=== PATIENT | female | born 1985 | race Caucasian/White ===

== ENCOUNTER → 2017-05-13 | Outpatient (CLI) | payer BC ==
[~2017-05-13] MED LIST: AMOX50SU; EXPECTA PRENAT1 EACH PO; HYDACE5; IBUP800; IBUP800 PO; OXYACE5T PO; PROM25 PO; RXOXYACE PO
[2017-05-14 14:20] LABS: Source Cervix
[2017-05-15 12:29] LABS: HPV Genotype 16 Not Detected (NOTDET); HPV Genotype 18 Not Detected (NOTDET)
[2017-05-22 08:16] LABS: HPV High Risk Other Not Detected (NOTDET)
== END ==
LOC: LAB 14:59
PROVIDERS: Obstetrics & Gynecology
DX: Z34.81 Encounter for supervision of other normal pregnancy, first trimester (principal)
CPT/HCPCS: 87491; 87591; 87624; 87661; G0123

== ENCOUNTER 2017-07-16 09:36 | Emergency (ER) | payer BC ==
[~2017-07-16] VITALS: Ht 172.7 cm; Wt 158.5 kg
[~2017-07-16 09:36] MED LIST changes: -IBUP800
== END 2017-07-16 12:40 | disposition home or self-care (01) ==
LOC: ER 09:36
DX: O20.9 Hemorrhage in early pregnancy, unspecified (principal); Z79.899 Other long term (current) drug therapy; Z3A.19 19 weeks gestation of pregnancy
CPT/HCPCS: 76816; 99284

== ENCOUNTER → 2017-11-09 | Outpatient (CLI) | payer BC | END | disposition home or self-care (01) | LOC: LAB 16:41 → LAB SHORT 16:41 | DX: Z34.83 Encounter for supervision of other normal pregnancy, third trimester (principal); Z3A.35 35 weeks gestation of pregnancy | CPT/HCPCS: 87081; 87653 ==

== ENCOUNTER 2017-12-10 06:09 | Inpatient (IN) | payer BC ==
[~2017-12-10] VITALS: Ht 172.7 cm; Wt 166.0 kg
[2017-12-10 09:19] LABS: BASOPHILS ABSOLUTE AUTO 0.03 K/mm3 (0.00-0.23); BASOPHILS PERCENT AUTO 0 % (0-2); EOSINOPHILS ABSOLUTE AUTO 0.17 K/mm3 (0.00-0.68); EOSINOPHILS PERCENT AUTO 1 % (0-6); Hematocrit 35.3 % (33.0-51.0); Hemoglobin 11.3 g/dL (11.5-16.0); IMMATURE GRAN ABSOLUTE AUTO 0.05 K/mm3 (0.00-0.10); IMMATURE GRAN PERCENT AUTO 0 % (0-1); LYMPHOCYTES ABSOLUTE AUTO 2.43 K/mm3 (0.84-5.20); LYMPHOCYTES PERCENT AUTO 18 % (21-46); MONOCYTES ABSOLUTE AUTO 0.75 K/mm3 (0.16-1.47); MONOCYTES PERCENT AUTO 5 % (4-13); Mean Corpuscular HGB 24.4 pg (26.0-34.0); Mean Corpuscular Volume 76 fL (80-100); Mean Platelet Volume 9.2 fL (9.1-12.4); NEUTROPHILS ABSOLUTE AUTO 10.48 K/mm3 (1.96-9.15); NEUTROPHILS PERCENT AUTO 75 % (41-73); Platelet Count 356 K/mm3 (150-400); RDW Coefficient Variation 14.9 % (11.7-14.2); RDW Standard Deviation 40.5 fL (35.1-46.3); Red Blood Cell Count 4.64 M/mm3 (3.80-5.20); White Blood Cell Count 13.91 K/mm3 (4.00-11.30)
[2017-12-11 05:55] LABS: BASOPHILS ABSOLUTE AUTO 0.04 K/mm3 (0.00-0.23); BASOPHILS PERCENT AUTO 0 % (0-2); EOSINOPHILS ABSOLUTE AUTO 0.24 K/mm3 (0.00-0.68); EOSINOPHILS PERCENT AUTO 2 % (0-6); Hematocrit 31.7 % (33.0-51.0); Hemoglobin 10.1 g/dL (11.5-16.0); IMMATURE GRAN ABSOLUTE AUTO 0.07 K/mm3 (0.00-0.10); IMMATURE GRAN PERCENT AUTO 0 % (0-1); LYMPHOCYTES ABSOLUTE AUTO 3.52 K/mm3 (0.84-5.20); LYMPHOCYTES PERCENT AUTO 22 % (21-46); MONOCYTES ABSOLUTE AUTO 1.24 K/mm3 (0.16-1.47); MONOCYTES PERCENT AUTO 8 % (4-13); Mean Corpuscular HGB 24.3 pg (26.0-34.0); Mean Corpuscular HGB Conc 31.9 g/dL (31.5-36.5); Mean Corpuscular Volume 76 fL (80-100); Mean Platelet Volume 9.4 fL (9.1-12.4); NEUTROPHILS ABSOLUTE AUTO 11.06 K/mm3 (1.96-9.15); NEUTROPHILS PERCENT AUTO 68 % (41-73); Platelet Count 306 K/mm3 (150-400); RDW Coefficient Variation 14.6 % (11.7-14.2); RDW Standard Deviation 39.9 fL (35.1-46.3); Red Blood Cell Count 4.15 M/mm3 (3.80-5.20); White Blood Cell Count 16.17 K/mm3 (4.00-11.30)
[2017-12-11] MEDS ORDERED: IBUP800 (16:09)
== END 2017-12-11 17:25 | disposition home or self-care (01) | DRG 775 ==
LOC: BC 06:09
PROVIDERS: Obstetrics & Gynecology
PROC: 10E0XZZ Delivery of Products of Conception, External Approach (ICD-10-PCS; principal; 2017-12-10)
PROC: 3E033VJ Introduction of Other Hormone into Peripheral Vein, Percutaneous Approach (ICD-10-PCS; 2017-12-10)
PROC: 3E0R3BZ Introduction of Anesthetic Agent into Spinal Canal, Percutaneous Approach (ICD-10-PCS; 2017-12-10)
DX: O48.0 Post-term pregnancy (principal); Z68.43 Body mass index [BMI] 50.0-59.9, adult; Z3A.40 40 weeks gestation of pregnancy; Z37.0 Single live birth; O99.214 Obesity complicating childbirth; E66.01 Morbid (severe) obesity due to excess calories
CPT/HCPCS: 36415; 85025; J1885; J2210; J2405; J2590; J3010; J7120

== ENCOUNTER 2018-02-04 10:04 | Day surgery (SDC) | payer BC ==
[~2018-02-04] VITALS: Ht 172.7 cm; Wt 165.1 kg
[~2018-02-04 10:04] MED LIST changes: +IBUP800
== END 2018-02-04 17:00 | disposition home or self-care (01) ==
LOC: ORSCMMR 10:04
PROVIDERS: Obstetrics & Gynecology
PROC: 0UT74ZZ Resection of Bilateral Fallopian Tubes, Percutaneous Endoscopic Approach (ICD-10-PCS; principal; 2018-02-04 11:15)
DX: Z30.2 Encounter for sterilization (principal); E66.01 Morbid (severe) obesity due to excess calories; Z68.43 Body mass index [BMI] 50.0-59.9, adult
CPT/HCPCS: 88302; J0330; J1885; J2250; J2405; J2765; J3010; J7120

== ENCOUNTER 2022-02-05 06:13 | Inpatient (IN) | payer BC ==
[~2022-02-05] VITALS: Ht 172.7 cm; Wt 135.6 kg
[~2022-02-05 06:13] MED LIST changes: +Prednisone20 MG PO
--- NOTE | 2022-02-05 11:25 | NUR ---
bp running in 80's systolic. Dr canseco currently in OR. spoke with teresa ROGERS in day surgery who will speak with dr Canseco regarding patient bp. pt lying in bed with eyes closed, awakens to vewrbal stimuli. reports pain and nausea are adequately controlled.
--- NOTE | 2022-02-05 11:39 | NUR ---
1135 DR ECHEVARRIA HERE TO SEE PATIENT, ORDERS RECEIVED
--- NOTE | 2022-02-05 11:59 | NUR ---
FLUID BOLUS IN PLACE. PT SEEPY, OPENS EYES TO VERBAL STIMULI. REPORTS SL NAUSEA WHEN AWAKENED. RETURNED TO SLEEP WHILE RN AT BEDSIDE. BIOX 95-100% ON ROOM AIR. SARA PAD WITH QUARTER SIZED AREA BLOODY VAGINAL DRAINAGE
--- NOTE | 2022-02-05 12:52 | NUR ---
1238 bp 68/43 hr 83 biox 87% though getting poor signal. vidya pad with 2" area bloody drainage, no clots. pt placed in reverse trendelenburg bp 80/[address] tierney and new orders received
[2022-02-05 13:18] LABS: Hematocrit 25.6 % (33.0-51.0); Mean Corpuscular HGB Conc 31.3 g/dL (31.5-36.5); Mean Corpuscular Volume 87 fL (80-100); Mean Platelet Volume 9.9 fL (9.1-12.4); Platelet Count 435 K/mm3 (150-400); Red Blood Cell Count 2.96 M/mm3 (3.80-5.20); White Blood Cell Count 27.34 K/mm3 (4.00-11.30)
[2022-02-05 13:46] LABS: BASOPHILS PERCENT MAN 0 % (0-2); EOSINOPHILS PERCENT MAN 0 % (0-6); LYMPHOCYTES ABSOLUTE MAN 3.28 K/mm3 (0.84-5.20); LYMPHOCYTES PERCENT MAN 12 % (21-46); MONOCYTES PERCENT MAN 0 % (4-13); NEUTROPHILS ABSOLUTE MAN 24.05 K/mm3 (1.96-9.15); SEG NEUTROPHILS PERCENT MAN 88 % (41-73); TOTAL CELLS COUNTED 100
--- NOTE | 2022-02-05 14:15 | NUR ---
After responding to a rapid call, I attend to pt's spouse, Rony, who is a bit overwhelmed. I provide a calming presence, positive distraction and therapeutic listening. I walk him to the ICU waiting rm and aid with communication with staff until pt is wheeled back to surgery. Rony responds well to interventions and shows signs of staying in as much peace as possible given the circumstances. I will continue to remain available.
--- NOTE | 2022-02-05 14:20 | NUR ---
1330 PT REP[ORTING "GAS PAINS" IN ABD, REQUESTING HOB BE ELEVATED. DISCUSSED WITH PT AND NEED AT THIS TI,E TO KEEP BED IN REVERSE TRENDELENBURG DUE TO HYPOTENSION.
--- NOTE | 2022-02-05 14:20 | NUR ---
ARRIVAL TO ICU PT ARRIVES TO ICU AT 1340 S/P VAGINAL HYSTER FOR HYPOTENSION. PALE, COOL. MUCUS MEMBRANES PALE. HYPOTENSIVE. DROWSY, WAKES TO VERBAL STIMULI. ATTEMPTED IV ACCESS. DR ECHEVARRIA AT BEDSIDE, PLAN TO RETURN TO OR. DR NAVARRETE AT BEDSIDE. ADDITIONAL 1L NS PLACED ON PRESSURE BAG, DOPAMINE STARTED VIA PIV. TO OR AT 1410.
--- NOTE | 2022-02-05 14:25 | NUR ---
1343 PT WITH SUDDENGASPING/SHALLOW RESPIRATIONS. PT DID NOT OPEN EYES TO VERBAL STIMULU. RAPID RESPONSE INITIATED.4" DIAMETER OF VAGINAL BLEEDING ON BED LINENS, NO VISIBLE CLOTS PT OPENED EYES AND VERBALIZES THAT STOMACH HURTS AFTER STERNAL RUB WAS DONE. DR ECHEVARRIA NOTIFIED OF PATIENT STATUS BY ROBBIE GHOTRA RN. PT TRANSFERRED TO ICU 8 ACCOMPANIED BY .
[2022-02-05 15:09] LABS: Hematocrit 25.3 % (33.0-51.0); Hemoglobin 8.3 g/dL (11.5-16.0)
--- NOTE | 2022-02-05 15:38 | NUR ---
02/05/22 1538 Marilee Byrd PT ENTERED OR WITH HIGUERA
[2022-02-05 15:51] LABS: PCO2 Arterial 51.3 mmHg (35-45); PO2 Arterial 373 mmHg (80-100); pH Blood Arterial 7.16 (7.35-7.45)
--- NOTE | 2022-02-05 16:51 | NUR ---
Met with spouse in ICU waiting room. Spouse displays evidence of understanding and engagement. Spouse will remain in waiting room until notified by ICU staff he can be with Pt. Notified ICU charge nurse of spouses location. Will remain available to the family.
[2022-02-05 17:52] LABS: PCO2 Arterial 46.5 mmHg (35-45); PO2 Arterial 157 mmHg (80-100); pH Blood Arterial 7.25 (7.35-7.45)
--- NOTE | 2022-02-05 18:00 | NUR ---
ARRIVAL TO ICU AT 1630. BEDSIDE REPORT FROM DR ECHEVARRIA, DR BEASLEY, AND OR STAFF. INTUBATED, 7.0 ETT, 23 AT TEETH, VENT SETTINGS AC/VC 16/400/5/50%. LUNGS CLEAR c EXP WHEEZE IN LLL. PROPOFOL GTT STARTED FOR SEDATION, 50 MCG/KG/MIN. MEDICATED c FENTANYL FOR PAIN PRN. ABD SOFT, OBESE. BT X 4. LAURA DRESSING TO LOWER ABD, SCANT BLOOD ON DRESSING. ART LINE TO LEFT RADIAL, FLUSHED AND ZERO'D. HTN NOTED. CORDIS LINE TO RIJ, NS AT 75 ML/HR INFUSING. HIGUERA PATENT, DRAINING CLEAR YELLOW URINE TO GRAVITY. OGT PLACED TO LIS. SO AT BEDSIDE. PER DR ECHEVARRIA, CONTACT HER FOR ANY EVENTS OVER NIGHT.
[2022-02-05 18:07] LABS: BASOPHILS ABSOLUTE AUTO 0.02 K/mm3 (0.00-0.23); BASOPHILS PERCENT AUTO 0 % (0-2); EOSINOPHILS PERCENT AUTO 0 % (0-6); Hematocrit 27.6 % (33.0-51.0); Hemoglobin 9.5 g/dL (11.5-16.0); IMMATURE GRAN ABSOLUTE AUTO 0.08 K/mm3 (0.00-0.10); IMMATURE GRAN PERCENT AUTO 1 % (0-1); LYMPHOCYTES ABSOLUTE AUTO 0.62 K/mm3 (0.84-5.20); LYMPHOCYTES PERCENT AUTO 4 % (21-46); MONOCYTES ABSOLUTE AUTO 0.42 K/mm3 (0.16-1.47); MONOCYTES PERCENT AUTO 2 % (4-13); Mean Corpuscular HGB 29.2 pg (26.0-34.0); Mean Corpuscular HGB Conc 34.4 g/dL (31.5-36.5); Mean Corpuscular Volume 85 fL (80-100); Mean Platelet Volume 9.4 fL (9.1-12.4); NEUTROPHILS PERCENT AUTO 93 % (41-73); Platelet Count 186 K/mm3 (150-400); RDW Standard Deviation 43.6 fL (35.1-46.3); Red Blood Cell Count 3.25 M/mm3 (3.80-5.20); White Blood Cell Count 17.34 K/mm3 (4.00-11.30)
[2022-02-05 18:26] LABS: Albumin, Blood 2.7 g/dL (3.4-5.0); Anion Gap 7 mmol/L (6-16); Blood Urea Nitrogen 14 mg/dL (8-24); Bun/Creatinine Ratio 23.7 (12.0-20.0); CO2, Blood 22 mmol/L (21-32); Calcium, Blood 7.8 mg/dL (8.5-10.1); Chloride, Blood 115 mmol/L (98-108); Creatinine, Blood 0.59 mg/dL (0.40-1.00); Glomerular Filtration Rate 119 (60-); Glucose, Blood 189 mg/dL (70-99); Phosphorus, Blood 2.9 mg/dL (2.5-4.9); Potassium, Blood 4.4 mmol/L (3.5-5.5); Sodium, Blood 144 mmol/L (136-145)
[2022-02-05 20:43] LABS: Source, Urine Foley catheter
[2022-02-05 20:56] LABS: Appearance, Urine Clear (Clear); Bilirubin, Urine Neg (Neg); Blood, Urine 2+ (Neg); Color, Urine Yellow (P-Yellow); Glucose Qualitative, Urine Neg (Neg); Ketones, Urine Neg (Neg); Leukocyte Esterase, Urine Neg (Neg); Nitrite, Urine Neg (Neg); Protein, Urine Neg (Neg); Specific Gravity, Urine 1.015 (1.003-1.022); Urobilinogen, Urine NORM (Normal)
--- NOTE | 2022-02-05 20:58 | NUR ---
ASSUMPTION OF CARE THIS RN ASSUMED CARE WITH MAN ROGERS AT 1900. REPORT TAKEN AT BEDSIDE WITH ELENA ROGERS. AC/VC /5 50% FIO2. PATIENT TOLERATING VENT WELL AT THIS TIME. AFEBRILE. SR/ST WITH HR 90-100S ON MONITOR. BP STABLE, MAP >65. BILATERAL SOFT WRIST RESTRAINTS IN PLACE. PROPOFOL TITRATED TO 45MCG/KG/MIN. PATIENT WITH SCANT AMOUNT OF BLEEDING IN SARA AREA. LAURA DRESSING INTACT, SCANT AMOUNT OF SANGUINOUS DRAINAGE NOTED ON DRESSING. HIGUERA CATHETER PATENT AND DRAINING TO GRAVITY. SEE SHIFT ASSESSMENT.
[2022-02-05 21:04] LABS: Amorphous Light (0-Heavy); Bacteria Rare /hpf; Mucus Light (0-Heavy); Squamous Epithelial Cells Few /hpf (Few); White Blood Cells, Urine 0-2 /hpf (0-5)
[2022-02-05 22:06] LABS: Hematocrit 25.5 % (33.0-51.0); Hemoglobin 8.7 g/dL (11.5-16.0)
[2022-02-06 03:29] LABS: Hematocrit 24.1 % (33.0-51.0); Hemoglobin 8.4 g/dL (11.5-16.0)
--- NOTE | 2022-02-06 04:44 | NUR ---
SHIFT SUMMARY PATIENT CONTINUES TO BE ON VENT WITH SETTINGS AT AC/VC 16/450/5 30% FIO2. PATIENT IS ON PROPOFOL 45MCG/KG/MIN. PATIENT OCCASIONALLY COUGHING BUT OVERALL TOLERATING VENT WELL. PATIENT ABLE TO NOD HEAD YES/NO TO QUESTIONS. MEDICATING FOR ANXIETY/PAIN PER EMAR. FOLLOWING H/H CLOSELY. 1 UNIT OF PRBCS TRANSFUSED DURING THIS SHIFT. HGB NOW 8.4. MD ECHEVARRIA UPDATED ON PATIENT CONDITION THROUGHOUT THE NIGHT. H/H WILL BE REDRAWN AT 0600. NO SIGNS OF ANDOMINAL DISTENTION NOTED. PATIENT ROLLED ONTO SIDE; NO SIGNS OF DISCOLORATION ON BACK. SCANT AMOUNTS OF VAGINAL BLEEDING DURING THE SHIFT; PAD IN PLACE. LAURA DRESSING IN PLACE WITH SMALL AMOUNT OF SANGUINOUS DRAINAGE NOTED THAT HAS NOT CHANGED DURING THIS SHIFT. LAP SITES WITH STERI STRIPS C/D/I. BILATERAL SOFT WRIST RESTRAINTS IN PLACE TO PREVENT PATIENT FROM REMOVING LINES/TUBES. LEFT RADIAL ART LINE REMOVED AT BEGINNING OF SHIFT DUE TO CONTINUED INACCURACY AND PROBLEMS WITH PLACEMENT. BP STABLE WITH RIGHT ARM CUFF. AFEBRILE. COARSE LUNG SOUNDS RESOLVED AFTER COUGHING/SUCTIONING. ORAL CARE DONE Q4HRS. HIGUERA CATHETER IN PLACE DRAINING TO GRAVITY. THIS RN NOTED THAT URINE BECAME DARKER THE SHIFT PROGRESSED. NS INFUSING AT 75MLS/HR. SEE SHIFT ASSESSMENT. THIS RN WILL CONTINUE TO MONITOR CLOSELY AND PROVIDE INTERVENTIONS NEEDED/ORDERED UNTIL SHIFT CHANGE AT 0700 THIS AM.
[2022-02-06 06:17] LABS: BASOPHILS ABSOLUTE AUTO 0.02 K/mm3 (0.00-0.23); BASOPHILS PERCENT AUTO 0 % (0-2); EOSINOPHILS ABSOLUTE AUTO 0.01 K/mm3 (0.00-0.68); EOSINOPHILS PERCENT AUTO 0 % (0-6); Hematocrit 22.6 % (33.0-51.0); Hemoglobin 7.9 g/dL (11.5-16.0); IMMATURE GRAN ABSOLUTE AUTO 0.03 K/mm3 (0.00-0.10); IMMATURE GRAN PERCENT AUTO 0 % (0-1); LYMPHOCYTES ABSOLUTE AUTO 1.87 K/mm3 (0.84-5.20); LYMPHOCYTES PERCENT AUTO 15 % (21-46); MONOCYTES ABSOLUTE AUTO 1.42 K/mm3 (0.16-1.47); MONOCYTES PERCENT AUTO 12 % (4-13); Mean Corpuscular HGB 29.3 pg (26.0-34.0); Mean Corpuscular Volume 84 fL (80-100); Mean Platelet Volume 9.9 fL (9.1-12.4); NEUTROPHILS ABSOLUTE AUTO 8.98 K/mm3 (1.96-9.15); NEUTROPHILS PERCENT AUTO 73 % (41-73); Platelet Count 172 K/mm3 (150-400); RDW Coefficient Variation 14.5 % (11.7-14.2); RDW Standard Deviation 43.8 fL (35.1-46.3); White Blood Cell Count 12.33 K/mm3 (4.00-11.30)
[2022-02-06 06:37] LABS: Albumin, Blood 2.3 g/dL (3.4-5.0); Anion Gap 6 mmol/L (6-16); Blood Urea Nitrogen 19 mg/dL (8-24); Bun/Creatinine Ratio 28.4 (12.0-20.0); CO2, Blood 24 mmol/L (21-32); Calcium, Blood 7.6 mg/dL (8.5-10.1); Chloride, Blood 113 mmol/L (98-108); Creatinine, Blood 0.67 mg/dL (0.40-1.00); Glomerular Filtration Rate 115 (60-); Glucose, Blood 115 mg/dL (70-99); Phosphorus, Blood 3.2 mg/dL (2.5-4.9); Potassium, Blood 4.4 mmol/L (3.5-5.5); Sodium, Blood 143 mmol/L (136-145)
--- NOTE | 2022-02-06 06:45 | NUR ---
UPDATE DR ECHEVARRIA NOTIFIED OF AM H&H. ORDER RECEIVED TO TRANSFUSE 1UNIT PRBCS
--- NOTE | 2022-02-06 09:23 | NUR ---
EXTUBATION PT OFF SEDATION AND FOLLOWING COMMANDS WELL. ORDERS RECIEVED FROM DR BLACK TO EXTUBATE PT. SULLY RT AT BEDSIDE. PT EXTUBATED AT 0907. PT PLACED ON 2L O2 NC. OGT REMOVED WITH EXTUBATION. VSS. WILL CONTINUE TO MONITOR.
--- NOTE | 2022-02-06 10:15 | NUR ---
Pt. is somnilent. Spouse is present and welcomes my visit. Spouse displays evidence of confidence that Pt. is improving. Listen empathetically with a calming presence. Spouse verbalizes gratitue for the spiritual care visit.
[2022-02-06 12:40] LABS: Hematocrit 24.3 % (33.0-51.0); Hemoglobin 8.3 g/dL (11.5-16.0)
[2022-02-06 16:44] LABS: BASOPHILS ABSOLUTE AUTO 0.03 K/mm3 (0.00-0.23); BASOPHILS PERCENT AUTO 0 % (0-2); EOSINOPHILS ABSOLUTE AUTO 0.09 K/mm3 (0.00-0.68); EOSINOPHILS PERCENT AUTO 1 % (0-6); Hematocrit 23.1 % (33.0-51.0); Hemoglobin 7.7 g/dL (11.5-16.0); IMMATURE GRAN ABSOLUTE AUTO 0.02 K/mm3 (0.00-0.10); IMMATURE GRAN PERCENT AUTO 0 % (0-1); LYMPHOCYTES ABSOLUTE AUTO 1.98 K/mm3 (0.84-5.20); LYMPHOCYTES PERCENT AUTO 19 % (21-46); MONOCYTES ABSOLUTE AUTO 1.13 K/mm3 (0.16-1.47); MONOCYTES PERCENT AUTO 11 % (4-13); Mean Corpuscular HGB 28.4 pg (26.0-34.0); Mean Corpuscular HGB Conc 33.3 g/dL (31.5-36.5); Mean Corpuscular Volume 85 fL (80-100); Mean Platelet Volume 9.8 fL (9.1-12.4); NEUTROPHILS ABSOLUTE AUTO 7.32 K/mm3 (1.96-9.15); NEUTROPHILS PERCENT AUTO 69 % (41-73); Platelet Count 144 K/mm3 (150-400); RDW Coefficient Variation 14.4 % (11.7-14.2); RDW Standard Deviation 44.7 fL (35.1-46.3); Red Blood Cell Count 2.71 M/mm3 (3.80-5.20); White Blood Cell Count 10.57 K/mm3 (4.00-11.30)
--- NOTE | 2022-02-06 19:00 | NUR ---
ASSUMPTION OF CARE PT RESTING IN BED WITH EYES CLOSED, FAMILY MEMBER AT BEDSIDE. PT IS A&OX4. C/O DIAPHRAGM/ABDOMINAL PAIN THAT INCREASES WITH EXCERTION. CURRENTLY 5/10 PAIN, MEDICATED PER EMAR. LAURA DRESSING IN PLACE WITH SMALL AMOUNT OF SANGUANEOUS DRAINAGE ON DRESSING. NO VAGINAL BLEEDING. BOWEL TONES ACTIVE, ABDOMEN SOFT TO LIGHT PALPATION. LUNGS ARE CLEAR THROUGHOUT. SHE IS ON RA WITH SPO2 >97%. OCCASIONAL PRODUCTIVE COUGH. SINUS RHTYHM ON MONITOR WITH RATE IN 80S. SHE IS RECEIVING 1UNIT PRBCS CURRENTLY. PLAN TO RECHECK H&H AFTER TRANSFUSION. SEE SHIFT ASSESSMENT.
--- NOTE | 2022-02-06 19:23 | NUR ---
ASSUMED CARE OF PT AT 1500 NEURO: ALERT AND ORIENTED. C/O INTERMITTENT DIZZINESS CARDIAC: SR-ST, SBP 100-120 RESP: ROOM AIR SINCE EXTUBATION THIS AM, O2 SAT > 95% GI: SIPS OF WATER. DENIES CURRENT NAUSEA BUT REQUESTS ZOFRAN EVERY TIME IT IS DUE R/T FEAR OF BECOMING NAUSEATED. : KALEN, UO 900ML THIS SHIFT, CLEAR YELLOW SKIN: LAURA DRAIN IN PLACE. DRAINAGE ON DRESSING HAS NOT INCREASED. DENIES PAIN AT INCISION SITE. C/O PAIN IN DIAPHRAGM AREA. SURGEON AWARE. IV: POWERGLIDE TO LEFT UPPER ARM. CENTRAL LINE TO RIGHT IJ. NS AT TKO WITH IVPB. 1 UNIT PRBC'S HUNG AT 1815 DUE TO HGB 7.7 PER MD ORDER. PSYCH: FAMILY AT BEDSIDE. SUPPORTIVE OF PT. REPORT GIVEN TO ONCOMING RN AT BEDSIDE.
[2022-02-06 21:34] LABS: BASOPHILS ABSOLUTE AUTO 0.03 K/mm3 (0.00-0.23); BASOPHILS PERCENT AUTO 0 % (0-2); EOSINOPHILS ABSOLUTE AUTO 0.12 K/mm3 (0.00-0.68); EOSINOPHILS PERCENT AUTO 1 % (0-6); Hematocrit 22.9 % (33.0-51.0); Hemoglobin 7.8 g/dL (11.5-16.0); IMMATURE GRAN ABSOLUTE AUTO 0.03 K/mm3 (0.00-0.10); IMMATURE GRAN PERCENT AUTO 0 % (0-1); LYMPHOCYTES ABSOLUTE AUTO 2.64 K/mm3 (0.84-5.20); LYMPHOCYTES PERCENT AUTO 24 % (21-46); MONOCYTES ABSOLUTE AUTO 1.14 K/mm3 (0.16-1.47); MONOCYTES PERCENT AUTO 11 % (4-13); Mean Corpuscular HGB 28.3 pg (26.0-34.0); Mean Corpuscular HGB Conc 34.1 g/dL (31.5-36.5); Mean Corpuscular Volume 83 fL (80-100); Mean Platelet Volume 9.8 fL (9.1-12.4); NEUTROPHILS ABSOLUTE AUTO 6.93 K/mm3 (1.96-9.15); NEUTROPHILS PERCENT AUTO 64 % (41-73); Platelet Count 130 K/mm3 (150-400); RDW Coefficient Variation 15.3 % (11.7-14.2); RDW Standard Deviation 46.9 fL (35.1-46.3); Red Blood Cell Count 2.76 M/mm3 (3.80-5.20); White Blood Cell Count 10.89 K/mm3 (4.00-11.30)
--- NOTE | 2022-02-06 22:01 | NUR ---
UPDATE DR ECHEVARRIA NOTIFIED OF REPEAT H&H DRAW AFTER PRBCS. PLAN TO REPEAT H&H AT 0000.
[2022-02-07 00:20] LABS: Hemoglobin 7.6 g/dL (11.5-16.0)
[2022-02-07 04:18] LABS: Hematocrit 21.9 % (33.0-51.0); Hemoglobin 7.5 g/dL (11.5-16.0)
--- NOTE | 2022-02-07 04:38 | NUR ---
SHIFT SUMMARY PT IS A&OX4. SHE CONTINUES TO HAVE UPPER ABDOMINAL PAIN THAT WORSENS WITH EXCERTION. BOWEL TONES HYPOACTIVE, ABDOMEN SOFT AND SLIGHTLY TENDER TO LIGHT PALPATION. LAURA DRESSING HAS SMALL AMOUNT OF SANGUINEOUS DRAINAGE THAT IS UNCHANGED FROM BEGINNING OF SHIFT. NO VAGINAL BLEEDING. MEDICATED FOR NAUSEA AND PAIN PER EMAR. SHE HAS AN OCCASIONAL PRODUCTIVE COUGH. SPO2 >93% ON RA, RR 12-18, DENIES SOB. SINUS RHYTHM ON MONITOR WITH RATE IN 80S. BP STABLE, STRONG PULSES. R ARM EDEMATOUS AND ELEVATED ON PILLOW. PT TOLERATING SMALL SIPS OF WATER. HIGUERA PATENT AND DRAINING TO GRAVITY. DR ECHEVARRIA UPDATED PREVIOUSLY IN SHIFT. IF HBG <7.5, DR ECHEVARRIA TO BE NOTIFIED. REPEAT H&H ORDERED FOR 0800.
[2022-02-07 04:47] LABS: Albumin, Blood 2.1 g/dL (3.4-5.0); Anion Gap 3 mmol/L (6-16); Blood Urea Nitrogen 11 mg/dL (8-24); Bun/Creatinine Ratio 19.5 (12.0-20.0); CO2, Blood 27 mmol/L (21-32); Calcium, Blood 7.7 mg/dL (8.5-10.1); Chloride, Blood 112 mmol/L (98-108); Creatinine, Blood 0.56 mg/dL (0.40-1.00); Glomerular Filtration Rate 120 (60-); Glucose, Blood 110 mg/dL (70-99); Phosphorus, Blood 2.2 mg/dL (2.5-4.9); Potassium, Blood 3.7 mmol/L (3.5-5.5); Sodium, Blood 142 mmol/L (136-145)
--- NOTE | 2022-02-07 08:11 | NUR ---
ASSUMED CARE OF PETRONA @ 0700, LOW ABDOMINAL INCISION WITH LAURA, UNCHANGED FROM CAFE SITE ATTENDANT, TROCAR SITES C/D/I. SCD'S IN PLACE, HIGUERA TO GRAVITY DRAINAGE. COMPLAINTS OF HEADACHE THAT IS UNCHANGED SINCE SURGERY. MEDICATED WITH ZOFRAN AND THEN PERCOCET. ATTEMPTING TO EAT A LITTLE BIT OF OATMEAL AND APPLE JUICE. PARENTS IN THE ROOM. RIGHT ARM VERY SWOLLEN, WARM BLANKET APPLIED FOR RELIEF. BP STABLE.
[2022-02-07 08:16] LABS: Hematocrit 22.8 % (33.0-51.0); Hemoglobin 7.6 g/dL (11.5-16.0)
--- NOTE | 2022-02-07 10:45 | NUR ---
PETRONA COMPLAINS MOSTLY OF HEADACHE, FEELS NAUSEATED. DIDN'T TOLERATE HER BREAK- FAST, SAID THAT THE APPLE JUICE STARTED OUT WELL BUT THEN DIDN'T. SHE CONTINUES WITH THE FAN AT BEDSIDE, FAMILY MEMBERS PRESENT, ROOM DARK, DENIES ANY NEEDS AT THIS TIME.
--- NOTE | 2022-02-07 12:09 | NUR ---
PT ENCOURAGED TO COUGH AND DEEP BREATHE, FILL HER LUNGS. GOOD COUGH WITH "POP" SOUND OF PHLEGM. PT ENCOURAGED TO GET UP TO THE CHAIR, SHE TOLERATED THIS WITH MINIMAL DISRUPTION. SHE KNEW IT WOULD BE UNCOMFORTABLE BUT WAS BENEFICIAL. STILL IS DENYING HER FOOD TRAYS AND ANYTHING OTHER THAN WATER. ANTIBIOTICS CONTINUE.
--- NOTE | 2022-02-07 12:45 | NUR ---
PETRONA HAS ALREADY RETURNED TO BED, SHE DID THE MAJORITY OF THE MOVING WITH MINIMAL GUIDANCE FROM ME. SHE WAS ABLE TO REPOSITION HERSELF IN HER BED AND DID A GOOD COUGH. SHE DID TAKE ANOTHER PERCOCET. MOM AND DAD ARE BY HER SIDE.
[2022-02-07 14:15] LABS: BASOPHILS ABSOLUTE AUTO 0.03 K/mm3 (0.00-0.23); BASOPHILS PERCENT AUTO 0 % (0-2); EOSINOPHILS ABSOLUTE AUTO 0.28 K/mm3 (0.00-0.68); EOSINOPHILS PERCENT AUTO 3 % (0-6); Hematocrit 21.8 % (33.0-51.0); Hemoglobin 7.5 g/dL (11.5-16.0); IMMATURE GRAN ABSOLUTE AUTO 0.05 K/mm3 (0.00-0.10); IMMATURE GRAN PERCENT AUTO 1 % (0-1); LYMPHOCYTES ABSOLUTE AUTO 2.35 K/mm3 (0.84-5.20); LYMPHOCYTES PERCENT AUTO 23 % (21-46); MONOCYTES ABSOLUTE AUTO 0.97 K/mm3 (0.16-1.47); MONOCYTES PERCENT AUTO 9 % (4-13); Mean Corpuscular HGB 29.1 pg (26.0-34.0); Mean Corpuscular HGB Conc 34.4 g/dL (31.5-36.5); Mean Corpuscular Volume 85 fL (80-100); NEUTROPHILS PERCENT AUTO 65 % (41-73); Platelet Count 142 K/mm3 (150-400); RDW Coefficient Variation 15.1 % (11.7-14.2); RDW Standard Deviation 46.4 fL (35.1-46.3); Red Blood Cell Count 2.58 M/mm3 (3.80-5.20); White Blood Cell Count 10.38 K/mm3 (4.00-11.30)
--- NOTE | 2022-02-07 16:04 | NUR ---
1500 HERE TO SEE PT. ORDERS FOR FLUIDS @ 125ML/HR, 1 UNIT PRBC'S, PT/PTT TO SEE ABOUT INFUSING PLATELETS. WILL PLAN TO SPEND ANOTHER NIGHT HERE. PT AND FAMILY UPDATED ON PLANS. UNIT RECEIVED, VERIFIED WITH KEN MARTINS, STARTED AND PATIENT OBSERVED. PT DENIES ANY CHANGES, MEDICATED FOR NAUSEA WHEN PREPA- RING THE UNIT TO BE STARTED. SHE IS NOW RESTING WITH A FAMILY MEMBER AT THE BEDSIDE.
[2022-02-07 16:07] LABS: International Normalized Ratio 1.01; Prothrombin Time Results 10.6 Sec (9.7-11.5)
--- NOTE | 2022-02-07 17:44 | NUR ---
PETRONA WAS MEDICATED WITH FENTANYL EARLIER THIS AFTERNOON, WHEN CHECKING ON HER BLOOD TRANSFUSION, SHE EXPRESSED THAT SHE DIDN'T LIKE THAT MEDICATION, IT MADE HER FEEL "YUCKY". SHE CONTINUES TO REST/SLEEP WHEN UNDISTURBED. HER HEART IS NOT POUNDING LOUDLY NOW WITH THE ADDITIONAL FLUIDS AND UNIT OF RBC'S. SHE NO LONGER HAS VISIBLE PULSATING IN HER CAROTIDS. SHE HAD 700 URINE OUTPUT AND ONLY TOOK IN WATER THIS SHIFT. SHE HAS BEEN ENCOURAGED TO TRY TO GET MORE FLUIDS IN, BUT SHE CONTINUES TO STATE THAT NOTHING SOUNDS GOOD. TEMP REMAINS NORMOTHERMIC, SKIN LESS PALE, RIGHT ARM REMAINS SWOLLEN AND TIGHT, UNCOMFORT- ABLE TO PATIENT. THE ARM IS ELEVATED ON PILLOWS, FAN REMAINS ON AND FACING THE PATIENT.
--- NOTE | 2022-02-07 18:14 | NUR ---
CALL TO IN REGARDS TO PT'S NAUSEA, PT STATING IT FEELS DIFFERENT THAN ANYTHING SO FAR, BOWEL TONES ARE AUDIBLE, BELLY IS SOFT, DRESSING UNCHANGED, TALKING WITH PATIENT ABOUT PASSING FLATUS AND THE DIFFERENCE. ORDER FOR REGLAN FROM . PT HAS NOT VOMITED. SHE RETURNS TO RESTING QUIETLY WITH FAMILY MEMBER AT HER SIDE. LR @ 125ML/HR, RBC'S FINISHED INFUSING. RIGHT ARM ELEVATED ON PILLOWS. FAN AT BEDSIDE TABLE.
--- NOTE | 2022-02-07 19:00 | NUR ---
ASSUMED CARE PT ALERT AND TALKING WITH STAFF. INSICION SITE CHECKED WITH DAY SHIFT RN. LAURA DRAIN IN PLACE. DRSG C/D/I. C/O PAIN 08/12. MEDICATED PER EMAR. NO C/O OF N/V AT THIS TIME. HIGUERA IN PLACE, DRAINING TO GRAVITY. VISITOR AT BEDSIDE.
[2022-02-07 21:13] LABS: BASOPHILS ABSOLUTE AUTO 0.04 K/mm3 (0.00-0.23); BASOPHILS PERCENT AUTO 0 % (0-2); EOSINOPHILS ABSOLUTE AUTO 0.32 K/mm3 (0.00-0.68); EOSINOPHILS PERCENT AUTO 3 % (0-6); Hematocrit 24.7 % (33.0-51.0); Hemoglobin 8.2 g/dL (11.5-16.0); IMMATURE GRAN ABSOLUTE AUTO 0.03 K/mm3 (0.00-0.10); IMMATURE GRAN PERCENT AUTO 0 % (0-1); LYMPHOCYTES ABSOLUTE AUTO 2.87 K/mm3 (0.84-5.20); LYMPHOCYTES PERCENT AUTO 29 % (21-46); MONOCYTES ABSOLUTE AUTO 0.96 K/mm3 (0.16-1.47); MONOCYTES PERCENT AUTO 10 % (4-13); Mean Corpuscular HGB 28.1 pg (26.0-34.0); Mean Corpuscular HGB Conc 33.2 g/dL (31.5-36.5); Mean Corpuscular Volume 85 fL (80-100); Mean Platelet Volume 9.9 fL (9.1-12.4); NEUTROPHILS ABSOLUTE AUTO 5.85 K/mm3 (1.96-9.15); NEUTROPHILS PERCENT AUTO 58 % (41-73); Platelet Count 148 K/mm3 (150-400); RDW Coefficient Variation 14.9 % (11.7-14.2); RDW Standard Deviation 46.2 fL (35.1-46.3); Red Blood Cell Count 2.92 M/mm3 (3.80-5.20); White Blood Cell Count 10.07 K/mm3 (4.00-11.30)
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
[2022-02-08 05:04] LABS: BASOPHILS ABSOLUTE AUTO 0.04 K/mm3 (0.00-0.23); BASOPHILS PERCENT AUTO 0 % (0-2); EOSINOPHILS ABSOLUTE AUTO 0.41 K/mm3 (0.00-0.68); EOSINOPHILS PERCENT AUTO 4 % (0-6); Hematocrit 24.8 % (33.0-51.0); Hemoglobin 8.4 g/dL (11.5-16.0); IMMATURE GRAN ABSOLUTE AUTO 0.05 K/mm3 (0.00-0.10); IMMATURE GRAN PERCENT AUTO 1 % (0-1); LYMPHOCYTES PERCENT AUTO 34 % (21-46); MONOCYTES ABSOLUTE AUTO 0.99 K/mm3 (0.16-1.47); MONOCYTES PERCENT AUTO 10 % (4-13); Mean Corpuscular HGB 28.6 pg (26.0-34.0); Mean Corpuscular HGB Conc 33.9 g/dL (31.5-36.5); Mean Corpuscular Volume 84 fL (80-100); Mean Platelet Volume 9.8 fL (9.1-12.4); NEUTROPHILS ABSOLUTE AUTO 5.17 K/mm3 (1.96-9.15); NEUTROPHILS PERCENT AUTO 51 % (41-73); Platelet Count 155 K/mm3 (150-400); RDW Standard Deviation 46.1 fL (35.1-46.3); Red Blood Cell Count 2.94 M/mm3 (3.80-5.20); White Blood Cell Count 10.16 K/mm3 (4.00-11.30)
[2022-02-08 05:44] LABS: Albumin, Blood 2.2 g/dL (3.4-5.0); Anion Gap 5 mmol/L (6-16); Blood Urea Nitrogen 9 mg/dL (8-24); Bun/Creatinine Ratio 18.9 (12.0-20.0); CO2, Blood 26 mmol/L (21-32); Calcium, Blood 7.8 mg/dL (8.5-10.1); Chloride, Blood 111 mmol/L (98-108); Creatinine, Blood 0.48 mg/dL (0.40-1.00); Glomerular Filtration Rate 125 (60-); Glucose, Blood 104 mg/dL (70-99); Phosphorus, Blood 3.2 mg/dL (2.5-4.9); Potassium, Blood 3.6 mmol/L (3.5-5.5); Sodium, Blood 142 mmol/L (136-145)
--- NOTE | 2022-02-08 06:47 | NUR ---
SHIFT SUMMARY NO ACUTE EVENTS OVERNIGHT. PT SLEPT MOST OF THE NIGHT, AWAKENS EASILY. VSS. SR/SB 60-50'S. SBP 120'S. MEDICATED FOR PAIN AND NAUSEA T/O SHIFT. SEE EMAR. NS AT 125ML/HR. HIGUERA IN PLACE AND DRAINING TO GRAVITY.
--- NOTE | 2022-02-08 11:31 | NUR ---
CARE OF PT ASSUMED AT 0700. PT SLEEPING THIS AM WITH MILD HEADACHE. ON ASSESSMENT PT C/O LOWER SURGICAL/ABD PAIN 2/10, MILD NAUSEA. PT MEDICATED W ZOFRAN PRIOR TO BREAKFAST. SHE WAS ABLE TO EAT OATMEAL AND MUFFIN, KEEPING FOOD/FLUIDS DOWN. PERCOCET GIVEN FOR 5/10 ABD DISCOMFORT. ABD SOFT BUT TENDER. DRSG INTACT, SMALL AMT OF OLD BLOOD TO DRSG. BP/VITALS STABLE. RIGHT IJ/CORDIS DC'D. MANUAL PRESSURE HELD. OCCULISIVE DRSG TO SITE. PLAN: OOB TO CHAIR TOLERATED. ENCOURAGE DEEP BREATH AND IS. POSSIBLE CHANGE IN STATUS.
--- NOTE | 2022-02-08 12:02 | NUR ---
PT OOB TO CHAIR FOR LUNCH, SBA. BP STABLE.
--- NOTE | 2022-02-08 13:48 | NUR ---
DR ECHEVARRIA IN TO SEE PT. PT NOW SURGICAL STATUS, NO TELE. KALEN RAMOS. PT GIVEN BEDBATH IN CHAIR. IS INSTRUCTIONS GIVEN. PARENTS AT BEDSIDE VISITING
--- NOTE | 2022-02-08 16:09 | NUR ---
PT ARRIVED TO UNIT FROM ICU. PT AMBULATED TO RESTROOM AND VOIDED. MEDICATED FOR PAIN PER EMAR. SHE REPORTS FEELING WEAK BUT OTHERWISE "BETTER THAN YESTERDAY" SHE WAS INDEPENDANT WITH AMBULATION. DRESSING HAS SMALL AMOUNT OF DRIED SEROSANGUINOUS DRAINAGE. GREEN LIGHT FLASHING ON PICCO. LAP SITES CDI. PT TOLERATING PO WELL AT THIS TIME. SHE DENIES NAUSEA. CALL LIGHT IN REACH, PT ORIENTED TO UNIT.
[2022-02-09 05:19] LABS: BASOPHILS ABSOLUTE AUTO 0.05 K/mm3 (0.00-0.23); BASOPHILS PERCENT AUTO 1 % (0-2); EOSINOPHILS ABSOLUTE AUTO 0.49 K/mm3 (0.00-0.68); EOSINOPHILS PERCENT AUTO 5 % (0-6); Hematocrit 27.8 % (33.0-51.0); Hemoglobin 8.9 g/dL (11.5-16.0); IMMATURE GRAN ABSOLUTE AUTO 0.03 K/mm3 (0.00-0.10); IMMATURE GRAN PERCENT AUTO 0 % (0-1); LYMPHOCYTES ABSOLUTE AUTO 2.78 K/mm3 (0.84-5.20); LYMPHOCYTES PERCENT AUTO 30 % (21-46); MONOCYTES ABSOLUTE AUTO 0.67 K/mm3 (0.16-1.47); MONOCYTES PERCENT AUTO 7 % (4-13); Mean Corpuscular HGB 27.8 pg (26.0-34.0); Mean Corpuscular Volume 87 fL (80-100); Mean Platelet Volume 10.1 fL (9.1-12.4); NEUTROPHILS ABSOLUTE AUTO 5.13 K/mm3 (1.96-9.15); NEUTROPHILS PERCENT AUTO 56 % (41-73); Platelet Count 228 K/mm3 (150-400); RDW Coefficient Variation 14.7 % (11.7-14.2); RDW Standard Deviation 46.7 fL (35.1-46.3); White Blood Cell Count 9.15 K/mm3 (4.00-11.30)
[2022-02-09 05:28] LABS: Albumin, Blood 2.4 g/dL (3.4-5.0); Albumin/Globulin Ratio 0.8 (0.8-1.8); Bilirubin, Total 0.5 mg/dL (0.1-1.0); Bun/Creatinine Ratio 22.2 (12.0-20.0); Calcium, Blood 8.2 mg/dL (8.5-10.1); Creatinine, Blood 0.5 mg/dL (0.40-1.00); Globulin, Blood 2.9 g/dL (2.2-4.0); Potassium, Blood 3.6 mmol/L (3.5-5.5); Total Protein, Blood 5.3 g/dL (6.4-8.2)
--- NOTE | 2022-02-09 06:30 | NUR ---
POD 4 S/P LAVH+EX LAP. PT VSS T/O NIGHT. NO ACTIVE DRNG NOTED TO DRESSINGS, SEAL AND SX INTACT ON LAURA DRESSING. PT HAVING SCANT DARK BROWNISH VAGINAL BLEEDING. PT C/O MILD NAUSEA, NO EMESIS. PAIN MGD W/1 PERCOCET PER PT REQ. PT DECLINING ADDITIONAL PAIN MEDS, IS REQ PRE MED W/ZOFRAN R/T NAUSEA. BT HYPO, PT REP +FLATUS. PT KYLE PO FLUIDS AND ATE A FEW CRACKERS. PT UP IN ROOM W/SBA, IS PAINFUL W/MVMT. AMBULATION ENC PT KYLE.
--- NOTE | 2022-02-09 17:31 | NUR ---
SHIFT SUMMARY PT HAS DONE WELL TODAY. UP TO CHAIR x 2. AMBULATED IN HALLWAY x 1. SHOWERED. MINIMAL VAGINAL BLEEDING. REPORTS AN INCREASE IN APPETITE. TAKES ZOFRAN PRIOR TO PAIN MEDS NOT DUE TO NAUSEA BUT IN FEAR OF VOMITING. PAIN MANAGED w/ 1 PERCOCET.
--- NOTE | 2022-02-10 06:20 | NUR ---
POD 5 S/P LAVH+EX LAP. PT VSS T/O NIGHT. NO NEW DRNG NOTED ON LAURA DRESSING; SEAL AND SX INTACT. PT HAVING SCANT VAGINAL BLEEDING, REP "A LITTLE PINK WHEN WIPING" PT IS VOIDING URINE W/O DIFFICULTY. ABD SOFT TO PALP. PT KYLE PO, DENIED N/V, REP +FLATUS, NO BM YET. PT C/O SHERIDAN AGAIN DURING NIGHT, DENIED VISUAL DISTURBANCES. PAIN MGD W/1 PERCOCET +HEAT AND COOL THERAPY. PT DECLINED ADDITIONAL PAIN MEDS, ANTI NAUSEA MEDS GIVEN PER PT REQ FOR FEAR OF NAUSEA W/PAIN MEDS. PT UP IN ROOM W/MIN ASSIST, AMB ENC PT KYLE.
[2022-02-10 10:52] LABS: BASOPHILS ABSOLUTE AUTO 0.04 K/mm3 (0.00-0.23); BASOPHILS PERCENT AUTO 1 % (0-2); EOSINOPHILS PERCENT AUTO 6 % (0-6); Hemoglobin 9.2 g/dL (11.5-16.0); IMMATURE GRAN ABSOLUTE AUTO 0.05 K/mm3 (0.00-0.10); IMMATURE GRAN PERCENT AUTO 1 % (0-1); LYMPHOCYTES ABSOLUTE AUTO 2.31 K/mm3 (0.84-5.20); LYMPHOCYTES PERCENT AUTO 26 % (21-46); MONOCYTES ABSOLUTE AUTO 0.77 K/mm3 (0.16-1.47); MONOCYTES PERCENT AUTO 9 % (4-13); Mean Corpuscular HGB 28.2 pg (26.0-34.0); Mean Corpuscular HGB Conc 32.9 g/dL (31.5-36.5); Mean Corpuscular Volume 86 fL (80-100); Mean Platelet Volume 9.5 fL (9.1-12.4); NEUTROPHILS ABSOLUTE AUTO 5.15 K/mm3 (1.96-9.15); NEUTROPHILS PERCENT AUTO 58 % (41-73); Platelet Count 304 K/mm3 (150-400); RDW Coefficient Variation 14.7 % (11.7-14.2); RDW Standard Deviation 45.5 fL (35.1-46.3); Red Blood Cell Count 3.26 M/mm3 (3.80-5.20); White Blood Cell Count 8.82 K/mm3 (4.00-11.30)
[2022-02-10] MEDS ORDERED: ONDA4 PO (13:07)
[2022-02-10] MEDS ORDERED: IBUP800 PO (13:08)
[2022-02-10] MEDS ORDERED: Percocet 5-3251 EACH PO (13:08)
--- NOTE | 2022-02-10 13:30 | NUR ---
DISCHARGE SCRIPTS GIVEN. EATING, DRINKING, VOIDING, PASSING GAS, & SMALL BM THIS AM. PAIN WELL CONTROLLED. DENIES N/V BUT IS AFRAID OF VOMITING SO TAKES ANTIEMETICS TO PREVENT. ATTENTIVE & LOVING. ESCORTED OUT VIA WC.
--- NOTE | 2022-02-12 10:45 | NUR ---
edit note from 02/05/22 at 1252. pt was placed in trendelenburg. had previosly incorrectly charted that patient was placed in reverse trendelenburg
== END 2022-02-10 13:30 | disposition home or self-care (01) | DRG 742 ==
LOC: ORSCMMR 06:13 → ICUE 06:13 → ORSCMMR 06:14 → ORD 07:30 → SURS 10:30 → ICUE 13:56 → ORSCMMR 15:00 → SURS 19:01 → ICUE 19:01 → SURS 02-08 15:36
PROVIDERS: Anesthesiology; Internal Medicine Critical Care Medicine; ADMIT Obstetrics & Gynecology
PROC: 0DH67UZ Insertion of Feeding Device into Stomach, Via Natural or Artificial Opening (ICD-10-PCS; 2022-02-05)
PROC: 30233K1 Transfusion of Nonautologous Frozen Plasma into Peripheral Vein, Percutaneous Approach (ICD-10-PCS; 2022-02-05)
PROC: 30233N1 Transfusion of Nonautologous Red Blood Cells into Peripheral Vein, Percutaneous Approach (ICD-10-PCS; 2022-02-05)
PROC: 02HV33Z Insertion of Infusion Device into Superior Vena Cava, Percutaneous Approach (ICD-10-PCS; 2022-02-05)
PROC: 0W3H0ZZ Control Bleeding in Retroperitoneum, Open Approach (ICD-10-PCS; 2022-02-05)
PROC: 0UJD0ZZ Inspection of Uterus and Cervix, Open Approach (ICD-10-PCS; 2022-02-05)
PROC: 30233R1 Transfusion of Nonautologous Platelets into Peripheral Vein, Percutaneous Approach (ICD-10-PCS; 2022-02-05)
PROC: 5A1935Z Respiratory Ventilation, Less than 24 Consecutive Hours (ICD-10-PCS; 2022-02-05)
PROC: 0UT9FZZ Resection of Uterus, Via Natural or Artificial Opening With Percutaneous Endoscopic Assistance (ICD-10-PCS; principal; 2022-02-05 07:30)
PROC: 0BH17EZ Insertion of Endotracheal Airway into Trachea, Via Natural or Artificial Opening (ICD-10-PCS; 2022-02-05 14:00)
DX: N92.1 Excessive and frequent menstruation with irregular cycle (principal); T81.19XA Other postprocedural shock, initial encounter; Z68.41 Body mass index [BMI] 40.0-44.9, adult; R10.2 Pelvic and perineal pain; K66.0 Peritoneal adhesions (postprocedural) (postinfection); E66.01 Morbid (severe) obesity due to excess calories; Z98.890 Other specified postprocedural states; Z79.52 Long term (current) use of systemic steroids
CPT/HCPCS: 36415; 36430; 71045; 74019; 80053; 80069; 81001; 82330; 82803; 82947; 83605; 85014; 85018; 85025; 85610; 85730; 86850; 86900; 86901; 86920; 86923; 88307; 94002; 94003; A9270; C1751; C9113; J0171; J0295; J0690; J1100; J1265; J1885; J2250; J2370; J2405; J2550; J2704; J2765; J2795; J3010; J7030; J7040; J7050; J7120; P9016; P9037; P9059

== ENCOUNTER 2022-02-13 14:19 | Emergency (ER) | payer BC ==
[~2022-02-13] VITALS: Ht 172.7 cm; Wt 147.4 kg
[~2022-02-13 14:19] MED LIST changes: +ONDA4 PO; +Percocet 5-3251 EACH PO
[2022-02-13] MEDS ORDERED: AMOX-CLAV 500-1 EAC5 PO (15:08)
[2022-02-13 15:39] LABS: Source, Urine Clean Catch
[2022-02-13 15:41] LABS: Appearance, Urine Clear (Clear); Bilirubin, Urine Neg (Neg); Blood, Urine Neg (Neg); Color, Urine Yellow (P-Yellow); Glucose Qualitative, Urine Neg (Neg); Ketones, Urine Neg (Neg); Leukocyte Esterase, Urine Neg (Neg); Nitrite, Urine Neg (Neg); Protein, Urine Neg (Neg); Specific Gravity, Urine 1.005 (1.003-1.022); Urobilinogen, Urine NORM (Normal)
[2022-02-13 17:04] LABS: BASOPHILS ABSOLUTE AUTO 0.09 K/mm3 (0.00-0.23); BASOPHILS PERCENT AUTO 1 % (0-2); EOSINOPHILS PERCENT AUTO 4 % (0-6); Hemoglobin 11.5 g/dL (11.5-16.0); IMMATURE GRAN ABSOLUTE AUTO 0.26 K/mm3 (0.00-0.10); IMMATURE GRAN PERCENT AUTO 2 % (0-1); LYMPHOCYTES ABSOLUTE AUTO 2.23 K/mm3 (0.84-5.20); LYMPHOCYTES PERCENT AUTO 19 % (21-46); MONOCYTES PERCENT AUTO 6 % (4-13); Mean Corpuscular HGB Conc 31.9 g/dL (31.5-36.5); Mean Corpuscular Volume 88 fL (80-100); Mean Platelet Volume 8.9 fL (9.1-12.4); NEUTROPHILS ABSOLUTE AUTO 7.84 K/mm3 (1.96-9.15); NEUTROPHILS PERCENT AUTO 68 % (41-73); Platelet Count 494 K/mm3 (150-400); RDW Coefficient Variation 14.8 % (11.7-14.2); RDW Standard Deviation 47.8 fL (35.1-46.3); White Blood Cell Count 11.52 K/mm3 (4.00-11.30)
[2022-02-13 17:24] LABS: Albumin, Blood 3.2 g/dL (3.4-5.0); Albumin/Globulin Ratio 0.8 (0.8-1.8); Bilirubin, Total 0.3 mg/dL (0.1-1.0); Bun/Creatinine Ratio 21.4 (12.0-20.0); Calcium, Blood 9.2 mg/dL (8.5-10.1); Creatinine, Blood 0.65 mg/dL (0.40-1.00); Globulin, Blood 3.8 g/dL (2.2-4.0); Potassium, Blood 4.4 mmol/L (3.5-5.5)
== END 2022-02-13 20:11 | disposition home or self-care (01) ==
LOC: ER 14:19
PROVIDERS: Physician Assistant
DX: I82.611 Acute embolism and thrombosis of superficial veins of right upper extremity (principal)
CPT/HCPCS: 36415; 74177; 80053; 81003; 85025; 93971; A9270; Q9967

== ENCOUNTER 2023-05-11 12:38 | Emergency (ER) | payer BC ==
[~2023-05-11] VITALS: Ht 172.7 cm; Wt 142.9 kg
[~2023-05-11 12:38] MED LIST changes: +AMOX-CLAV 500-1 EAC5 PO
[2023-05-11 14:24] LABS: BASOPHILS ABSOLUTE AUTO 0.09 K/mm3 (0.00-0.23); BASOPHILS PERCENT AUTO 1 % (0-2); EOSINOPHILS ABSOLUTE AUTO 0.32 K/mm3 (0.00-0.68); EOSINOPHILS PERCENT AUTO 3 % (0-6); Hematocrit 41.8 % (33.0-51.0); Hemoglobin 13.8 g/dL (11.5-16.0); IMMATURE GRAN PERCENT AUTO 1 % (0-1); LYMPHOCYTES ABSOLUTE AUTO 4.94 K/mm3 (0.84-5.20); LYMPHOCYTES PERCENT AUTO 38 % (21-46); MONOCYTES ABSOLUTE AUTO 0.84 K/mm3 (0.16-1.47); MONOCYTES PERCENT AUTO 7 % (4-13); Mean Corpuscular HGB 26.9 pg (26.0-34.0); Mean Corpuscular Volume 82 fL (80-100); Mean Platelet Volume 8.7 fL (9.1-12.4); NEUTROPHILS ABSOLUTE AUTO 6.66 K/mm3 (1.96-9.15); NEUTROPHILS PERCENT AUTO 51 % (41-73); Platelet Count 453 K/mm3 (150-400); RDW Coefficient Variation 13.2 % (11.7-14.2); Red Blood Cell Count 5.13 M/mm3 (3.80-5.20); White Blood Cell Count 12.95 K/mm3 (4.00-11.30)
[2023-05-11 15:16] LABS: Albumin, Blood 3.8 g/dL (3.4-5.0); Bilirubin, Total 0.3 mg/dL (0.1-1.0); Bun/Creatinine Ratio 27.4 (12.0-20.0); Calcium, Blood 9.7 mg/dL (8.5-10.1); Creatinine, Blood 0.66 mg/dL (0.40-1.00); Total Protein, Blood 7.8 g/dL (6.4-8.2)
[2023-05-11 15:51] VITALS: BP 162/108
== END 2023-05-11 16:05 | disposition home or self-care (01) ==
LOC: ER 12:38
PROVIDERS: Physician Assistant
DX: R00.2 Palpitations (principal); R05.9 Cough, unspecified; R42 Dizziness and giddiness
CPT/HCPCS: 71046; 80053; 84443; 84484; 85025; 85379; 93005; 93010; 93246; 99285-25

== ENCOUNTER → 2024-03-20 | Outpatient (CLI) | payer BC ==
[2024-03-23 06:27] LABS: HCV QNT BY NAAT (IU/ML) Not Detected; HCV QNT BY NAAT (LOG IU/ML) Not Detected; HCV QNT BY NAAT INTERP Not Detected (Not Detected)
[2024-03-23 10:27] LABS: HEPATITIS B SURFACE ANTIBODY 4.32 IU/L
[2024-03-23 13:42] LABS: HEPATITIS B SURFACE ANTIGEN Negative (Negative)
[2024-03-23 17:13] LABS: HIV 1,2 COMBO ANTIGEN/ANTIBODY Negative (Negative)
== END ==
LOC: LAB SHORT 17:26 → LAB 17:26
PROVIDERS: Physician Assistant
DX: Z20.9 Contact with and (suspected) exposure to unspecified communicable disease (principal)
CPT/HCPCS: 84460; 87340; 87389; 87522

== ENCOUNTER → 2024-05-31 | Outpatient (CLI) | payer BC ==
[2024-06-02 13:46] LABS: HIV 1,2 COMBO ANTIGEN/ANTIBODY Negative (Negative)
[2024-06-02 16:26] LABS: HCV QNT BY NAAT (IU/ML) Not Detected; HCV QNT BY NAAT (LOG IU/ML) Not Detected; HCV QNT BY NAAT INTERP Not Detected (Not Detected)
== END ==
LOC: LAB SHORT 16:31 → LAB 16:31
PROVIDERS: Family Medicine
DX: Z20.9 Contact with and (suspected) exposure to unspecified communicable disease (principal)
CPT/HCPCS: 87389; 87522